=== PATIENT | female | born 2000 | race Asian ===

== ENCOUNTER 2023-03-20 06:37 | Emergency (ER) | payer OTHER ==
[~2023-03-20] VITALS: Ht 157.5 cm; Wt 50.4 kg
[2023-03-20] MEDS ORDERED: AMOCLA875 PO (07:55)
[2023-03-20 09:45] VITALS: BP 122/72
== END 2023-03-20 09:58 | disposition home or self-care (01) ==
LOC: ER 06:37
DX: S02.40DA Maxillary fracture, left side, initial encounter for closed fracture (principal); H11.31 Conjunctival hemorrhage, right eye; F17.200 Nicotine dependence, unspecified, uncomplicated; Y04.8XXA Assault by other bodily force, initial encounter
CPT/HCPCS: 70486; 99284-25

== ENCOUNTER → 2024-03-02 | Outpatient (CLI) | payer OTHER ==
[~2024-03-02] MED LIST: AMOCLA875 PO
== END | disposition home or self-care (01) ==
LOC: LAB 09:13 → LAB SHORT 09:13
DX: R82.81 Pyuria (principal)
CPT/HCPCS: 87077; 87086; 87186

== ENCOUNTER → 2024-05-02 | Outpatient (CLI) | payer OTHER ==
[2024-05-02 13:54] LABS: Source, Urine Clean Catch
[2024-05-02 15:44] LABS: Appearance, Urine Clear (Clear); Bilirubin, Urine Neg (Neg); Blood, Urine Neg (Neg); Glucose Qualitative, Urine Neg (Neg); Ketones, Urine Neg (Neg); Leukocyte Esterase, Urine Neg (Neg); Nitrite, Urine Neg (Neg); Protein, Urine Neg (Neg); Urobilinogen, Urine NORM (Normal)
[2024-05-02 15:55] LABS: Color, Urine Pale Yellow (P-Yellow)
== END ==
LOC: LAB SHORT 13:53 → LAB 13:53
PROVIDERS: Obstetrics & Gynecology
DX: R82.90 Unspecified abnormal findings in urine (principal)
CPT/HCPCS: 81003